=== PATIENT | male | born 1980 | race Caucasian/White ===

== ENCOUNTER 2016-10-18 14:03 | Emergency (ER) | payer SELFPAY ==
[~2016-10-18] VITALS: Ht 160 cm; Wt 74.0 kg
[~2016-10-18 14:03] MED LIST: BENZ100C70 PO; CYCL-319 PO; IBUP-1542 PO; LEVO750T25 PO; PROM6.25 PO
[2016-10-18 14:25] VITALS: Ht 160 cm; Wt 74.0 kg
== END 2016-10-18 19:54 | disposition left against medical advice (07) ==
LOC: E/R 14:03
DX: Z53.21 Procedure and treatment not carried out due to patient leaving prior to being seen by health care provider (principal)
CPT/HCPCS: 93005

== ENCOUNTER 2019-06-24 09:01 | Emergency (ER) | payer MEDICAID ==
[~2019-06-24] VITALS: Ht 172.7 cm; Wt 78.0 kg
[~2019-06-24 09:01] MED LIST changes: +ALBU8.5H8 INH; +BENZ-6 PO; -BENZ100C70 PO; -CYCL-319 PO; +CYCL10TA7 PO; +GUAI120S25 PO
[2019-06-24 09:03] VITALS: BP 162/93; RESP 18; Ht 172.7 cm; Wt 78.0 kg
[2019-06-24] MEDS ORDERED: IPRATROPIUM (NEB) 0.5 MG/2.5 ML AMP NEB STA (10:01)
[2019-06-24] MEDS ORDERED: DEXAMETHASONE 10 MG/ML 1 ML INJ IM STA (10:01)
[2019-06-24] MEDS ORDERED: ALBUTEROL 0.083% (NEB) 2.5 MG/3 ML AMP NEB STA (10:01)
[2019-06-24 10:55] VITALS: PULSE 65
== END 2019-06-24 10:56 | disposition home or self-care (01) ==
LOC: FTE 09:01
DX: J20.9 Acute bronchitis, unspecified (principal)
CPT/HCPCS: 71045; 94664; 96372; J1100; Z7502; Z7610